=== PATIENT | female | born 1970 | race Caucasian/White ===

== ENCOUNTER 2016-12-27 07:28 | Emergency (ER) | payer OTHER ==
[~2016-12-27] VITALS: Ht 154.9 cm; Wt 99.8 kg
[~2016-12-27 07:28] MED LIST: ALLERGY RELIEF25 MG PO; BENADRYL12.5 MG/5 PO; FLONASE ALLERG9.9 ML NAS; IBU800 MG PO; LEVOFLOXACIN500 MG PO; OMNICEF300 MG PO; PERCOCET 325 MG1 TA2 PO; PHENERGAN W/ DE30 ML PO; PREDNICOT10 MG PO; PREDNICOT20 MG PO; PROAIR HFA0.09 MG/AC INH; TESSALON PERLE200 MG PO; VIBRAMYCIN100 MG PO; VITAMIN C; ZITHROMAX Z PA250 MG PO; ZITHROMAX250 MG PO
[2016-12-27] MEDS ORDERED: ELMIRON100 MG PO (07:39)
[2016-12-27] MEDS ORDERED: PYRIDIUM100 MG PO (07:41)
[2016-12-27] MEDS ORDERED: OSTEO BI-FLEX1 EAC1 PO (07:41)
[2016-12-29 08:07] LABS: HIV 1+2 AB + HIV1 P24 AG Non Reactive (Non Reactive)
== END 2016-12-27 08:38 | disposition home or self-care (01) ==
LOC: ED 07:28
PROVIDERS: Emergency Medicine
DX: S61.233A Puncture wound without foreign body of left middle finger without damage to nail, initial encounter (principal); W27.3XXA Contact with needle (sewing), initial encounter; Z88.0 Allergy status to penicillin; Z88.1 Allergy status to other antibiotic agents; F17.200 Nicotine dependence, unspecified, uncomplicated; Z79.899 Other long term (current) drug therapy; X58.XXXA Exposure to other specified factors, initial encounter; Y93.89 Activity, other specified; Y92.9 Unspecified place or not applicable; Y99.9 Unspecified external cause status

== ENCOUNTER → 2017-02-09 | Outpatient (CLI) | payer SELFPAY ==
[~2017-02-09] MED LIST changes: +ELMIRON100 MG PO; +OSTEO BI-FLEX1 EAC1 PO; +PYRIDIUM100 MG PO
== END | disposition home or self-care (01) ==
LOC: RESCLI 03:33
DX: E66.09 Other obesity due to excess calories (principal); Z72.0 Tobacco use; Z71.6 Tobacco abuse counseling; Z91.09 Other allergy status, other than to drugs and biological substances; Z88.1 Allergy status to other antibiotic agents; W27.3XXA Contact with needle (sewing), initial encounter

== ENCOUNTER → 2017-02-19 | Outpatient (CLI) | payer OTHER ==
[2017-02-19 14:01] LABS: ALBUMIN 3.4 gm/dl (3.1-4.5); ALKALINE PHOSPHATASE 70 U/L (45-117); BILIRUBIN, DIRECT < 0.1 mg/dL (0.0-0.2); BILIRUBIN, TOTAL 0.2 mg/dl (0.2-1.0); BUN 9 mg/dl (7-24); CARBON DIOXIDE 27 mmol/L (21-32); CHLORIDE 105 mmol/L (98-107); EST GLOM FILT AFRICAN AMERICAN > 60 ml/min; GLUCOSE 95 mg/dL (65-99); POTASSIUM 4.1 mmol/L (3.5-5.1); SGOT/AST 16 IU/L (3-35); SGPT/ALT 21 U/L (12-78); SODIUM 139 mmol/L (136-145); TOTAL PROTEIN 7.2 gm/dL (6.4-8.2)
[2017-02-20 07:07] LABS: HIV 1+2 AB + HIV1 P24 AG Non Reactive (Non Reactive)
== END | disposition home or self-care (01) ==
LOC: LAB 12:43
PROVIDERS: Internal Medicine
DX: Z77.21 Contact with and (suspected) exposure to potentially hazardous body fluids (principal); W27.3XXA Contact with needle (sewing), initial encounter

== ENCOUNTER 2017-07-20 07:18 | Emergency (ER) | payer SELFPAY ==
[~2017-07-20] VITALS: Wt 104.3 kg
[2017-07-20] MEDS ORDERED: LEVOFLOXACIN500 MG PO (08:48)
== END 2017-07-20 09:05 | disposition home or self-care (01) ==
LOC: ED 07:18
DX: J40 Bronchitis, not specified as acute or chronic (principal); J32.9 Chronic sinusitis, unspecified; F17.200 Nicotine dependence, unspecified, uncomplicated; F10.10 Alcohol abuse, uncomplicated; Z88.0 Allergy status to penicillin; Z88.1 Allergy status to other antibiotic agents; Z88.8 Allergy status to other drugs, medicaments and biological substances; Z79.899 Other long term (current) drug therapy

== ENCOUNTER → 2017-07-21 | Outpatient (CLI) | payer OTHER ==
[2017-07-21 12:15] LABS: ALBUMIN 3.5 gm/dl (3.1-4.5); BILIRUBIN, DIRECT < 0.1 mg/dL (0.0-0.2); BUN 9 mg/dl (7-24); CHLORIDE 105 mmol/L (98-107); CREATININE 0.79 mg/dL (0.55-1.02); POTASSIUM 4.4 mmol/L (3.5-5.1); SGOT/AST 17 IU/L (3-35); SGPT/ALT 24 U/L (12-78); SODIUM 138 mmol/L (136-145); TOTAL PROTEIN 7.5 gm/dL (6.4-8.2)
[2017-07-21 12:16] LABS: ALKALINE PHOSPHATASE 80 U/L (45-117)
[2017-07-22 08:08] LABS: HIV 1+2 AB + HIV1 P24 AG Non Reactive (Non Reactive)
== END | disposition home or self-care (01) ==
LOC: RESCLI 02:12
PROVIDERS: Internal Medicine
DX: Z02.6 Encounter for examination for insurance purposes (principal); J06.9 Acute upper respiratory infection, unspecified; B97.89 Other viral agents as the cause of diseases classified elsewhere; Z87.891 Personal history of nicotine dependence; R53.82 Chronic fatigue, unspecified

== ENCOUNTER → 2017-08-04 | Outpatient (CLI) | payer SELFPAY ==
[~2017-08-04] MED LIST changes: +PREDNISONE20 M1 PO; +PROAIR HFA8.5 GM INH; +PROVENTIL HFA6.7 GM INH
== END | disposition home or self-care (01) ==
LOC: MAMMO 12:47
DX: Z12.31 Encounter for screening mammogram for malignant neoplasm of breast (principal)

== ENCOUNTER 2017-08-06 07:20 | Emergency (ER) | payer SELFPAY ==
[~2017-08-06] VITALS: Ht 154.9 cm; Wt 108.9 kg
[~2017-08-06 07:20] MED LIST changes: -PREDNISONE20 M1 PO; -PROAIR HFA8.5 GM INH; -PROVENTIL HFA6.7 GM INH
[2017-08-06] MEDS ORDERED: PROAIR HFA8.5 GM INH (07:34)
[2017-08-06 08:21] LABS: BASO % 0.3 % (0.0-1.0); EOS # 0.4 10*3/uL (0.0-0.4); EOS % 4.9 % (1.0-4.0); HEMATOCRIT 36.3 % (37.0-47.0); HEMOGLOBIN 12.1 g/dl (12.0-16.0); LYMPH # 2.4 10*3/uL (1.3-4.4); LYMPH % 31.1 % (27.0-41.0); MEAN CELL VOLUME 91.9 fl (81.0-99.0); MEAN CORPUSCULAR HGB 30.6 pg (27.0-31.0); MEAN CORPUSCULAR HGB CONC 33.3 g/dl (33.0-37.0); MEAN PLATELET VOLUME 10.2 fl (9.6-12.3); MONO # 0.5 10*3/uL (0.1-1.0); MONO % 6.7 % (3.0-9.0); NEUT # 4.4 10*3/uL (2.3-7.9); NEUT % 56.7 % (47.0-73.0); PLATELET COUNT AUTOMATED 287 10*3/uL (130-400); RED BLOOD COUNT 3.95 10*6/uL (4.10-5.10); RED CELL DISTRI WIDTH 12.3 % (0-14.5); WHITE BLOOD COUNT 7.8 10*3/uL (4.8-10.8)
[2017-08-06 08:36] LABS: ALBUMIN 3.6 gm/dl (3.1-4.5); ALKALINE PHOSPHATASE 70 U/L (45-117); BUN 13 mg/dl (7-24); CHLORIDE 106 mmol/L (98-107); SGOT/AST 11 IU/L (3-35); SGPT/ALT 22 U/L (12-78); SODIUM 140 mmol/L (136-145); TOTAL PROTEIN 7.6 gm/dL (6.4-8.2)
[2017-08-06] MEDS ORDERED: PREDNISONE20 M1 PO (09:31)
[2017-08-06] MEDS ORDERED: VIBRAMYCIN100 MG PO (09:31)
[2017-08-06] MEDS ORDERED: PROVENTIL HFA6.7 GM INH (09:33)
== END 2017-08-06 09:51 | disposition home or self-care (01) ==
LOC: ED 07:20
PROVIDERS: Emergency Medicine
DX: J44.1 Chronic obstructive pulmonary disease with (acute) exacerbation (principal); F17.200 Nicotine dependence, unspecified, uncomplicated; Z88.0 Allergy status to penicillin; Z88.1 Allergy status to other antibiotic agents

== ENCOUNTER 2017-08-13 00:42 | Emergency (ER) | payer SELFPAY ==
[~2017-08-13] VITALS: Ht 162.5 cm; Wt 108.9 kg
[~2017-08-13 00:42] MED LIST changes: +PREDNISONE20 M1 PO; +PROAIR HFA8.5 GM INH; +PROVENTIL HFA6.7 GM INH
[2017-08-13 01:12] LABS: BASO % 0.2 % (0.0-1.0); EOS # 0.3 10*3/uL (0.0-0.4); EOS % 2.6 % (1.0-4.0); HEMATOCRIT 37.5 % (37.0-47.0); HEMOGLOBIN 12.8 g/dl (12.0-16.0); LYMPH % 35.4 % (27.0-41.0); MEAN CELL VOLUME 91.2 fl (81.0-99.0); MEAN CORPUSCULAR HGB 31.1 pg (27.0-31.0); MEAN CORPUSCULAR HGB CONC 34.1 g/dl (33.0-37.0); MONO # 0.7 10*3/uL (0.1-1.0); MONO % 6.1 % (3.0-9.0); NEUT # 6.3 10*3/uL (2.3-7.9); NEUT % 55.5 % (47.0-73.0); PLATELET COUNT AUTOMATED 329 10*3/uL (130-400); RED BLOOD COUNT 4.11 10*6/uL (4.10-5.10); RED CELL DISTRI WIDTH 12.6 % (0-14.5); WHITE BLOOD COUNT 11.4 10*3/uL (4.8-10.8)
[2017-08-13 01:21] LABS: ACT PARTIAL THROMBO TIME 24.3 SECONDS (20.8-31.5); INTERNATIONAL NORM RATIO 0.9 (2.0-3.5)
[2017-08-13 01:51] LABS: ALBUMIN 3.5 gm/dl (3.1-4.5); ALKALINE PHOSPHATASE 63 U/L (45-117); BUN 24 mg/dl (7-24); CHLORIDE 103 mmol/L (98-107); CREATININE 0.79 mg/dL (0.55-1.02); SGOT/AST 9 IU/L (3-35); SGPT/ALT 20 U/L (12-78); SODIUM 139 mmol/L (136-145); TOTAL PROTEIN 7.3 gm/dL (6.4-8.2)
[2017-08-13 01:53] LABS: TROPONIN I < 0.015 ng/ml (<0.045)
== END 2017-08-13 03:39 | disposition home or self-care (01) ==
LOC: ED 00:42
PROVIDERS: Student in an Organized Health Care Education/Training Program
DX: R07.89 Other chest pain (principal); J44.1 Chronic obstructive pulmonary disease with (acute) exacerbation; F10.10 Alcohol abuse, uncomplicated; Z88.0 Allergy status to penicillin; Z88.1 Allergy status to other antibiotic agents; Z88.8 Allergy status to other drugs, medicaments and biological substances; Z79.899 Other long term (current) drug therapy

== ENCOUNTER → 2017-08-17 | Outpatient (CLI) | payer SELFPAY ==
[~2017-08-17] MED LIST changes: +CYCLOBENZAPRINE10 MG PO; +NAPROSYN500 MG PO; +PREDNISONE10 MG PO; +VITAMIN D31000 UNI1 PO
== END | disposition home or self-care (01) ==
LOC: RESCLI 02:12
DX: R42 Dizziness and giddiness (principal); M79.89 Other specified soft tissue disorders; E66.01 Morbid (severe) obesity due to excess calories; Z68.42 Body mass index [BMI] 45.0-49.9, adult; Z87.891 Personal history of nicotine dependence; Z88.1 Allergy status to other antibiotic agents

== ENCOUNTER 2017-08-19 10:44 | Emergency (ER) | payer SELFPAY ==
[~2017-08-19] VITALS: Ht 154.9 cm; Wt 111.1 kg
[~2017-08-19 10:44] MED LIST changes: -CYCLOBENZAPRINE10 MG PO; -NAPROSYN500 MG PO; -PREDNISONE10 MG PO; -VITAMIN D31000 UNI1 PO
[2017-08-19 11:35] LABS: BASO % 0.2 % (0.0-1.0); EOS # 0.1 10*3/uL (0.0-0.4); EOS % 0.8 % (1.0-4.0); HEMATOCRIT 37.6 % (37.0-47.0); HEMOGLOBIN 12.5 g/dl (12.0-16.0); LYMPH # 1.1 10*3/uL (1.3-4.4); LYMPH % 8.7 % (27.0-41.0); MEAN CELL VOLUME 92.8 fl (81.0-99.0); MEAN CORPUSCULAR HGB 30.9 pg (27.0-31.0); MEAN CORPUSCULAR HGB CONC 33.2 g/dl (33.0-37.0); MEAN PLATELET VOLUME 9.7 fl (9.6-12.3); MONO # 0.3 10*3/uL (0.1-1.0); MONO % 2.2 % (3.0-9.0); NEUT # 11.1 10*3/uL (2.3-7.9); NEUT % 87.7 % (47.0-73.0); PLATELET COUNT AUTOMATED 346 10*3/uL (130-400); RED BLOOD COUNT 4.05 10*6/uL (4.10-5.10); RED CELL DISTRI WIDTH 12.5 % (0-14.5); WHITE BLOOD COUNT 12.7 10*3/uL (4.8-10.8)
[2017-08-19 11:53] LABS: ALBUMIN 3.4 gm/dl (3.1-4.5); ALKALINE PHOSPHATASE 60 U/L (45-117); BUN 15 mg/dl (7-24); CHLORIDE 106 mmol/L (98-107); CREATININE 0.81 mg/dL (0.55-1.02); POTASSIUM 4.4 mmol/L (3.5-5.1); SGOT/AST 12 IU/L (3-35); SGPT/ALT 19 U/L (12-78); SODIUM 138 mmol/L (136-145); TOTAL PROTEIN 7.1 gm/dL (6.4-8.2)
[2017-08-19 11:54] LABS: TROPONIN I < 0.015 ng/ml (<0.045)
[2017-08-19 12:04] LABS: BILIRUBIN NEGATIVE (NEGATIVE); BLOOD NEGATIVE (NEGATIVE); CLARITY CLOUDY (CLEAR); COLOR YELLOW (YELLOW); GLUCOSE NEGATIVE (NEGATIVE); KETONE NEGATIVE (NEGATIVE); LEUKO ESTERASE NEGATIVE (NEGATIVE); NITRITE NEGATIVE (NEGATIVE); PH 5.5 (5.0-9.0); SPECIFIC GRAVITY 1.025 (1.005-1.030); UROBILINOGEN 0.2 E.U./dl (0.2-1.0)
[2017-08-19 12:34] LABS: BACTERIA 2+; EPITHELIAL CELLS 15-20; MUCOUS 1+
[2017-08-19] MEDS ORDERED: CYCLOBENZAPRINE10 MG PO ×2 (13:12→13:19)
[2017-08-19] MEDS ORDERED: NAPROSYN500 MG PO (13:12)
== END 2017-08-19 13:29 | disposition home or self-care (01) ==
LOC: ED 10:44
PROVIDERS: Physician Assistant
DX: S39.012A Strain of muscle, fascia and tendon of lower back, initial encounter (principal); R07.81 Pleurodynia; M25.512 Pain in left shoulder; Z98.51 Tubal ligation status; Z98.890 Other specified postprocedural states; Z79.899 Other long term (current) drug therapy; Z88.0 Allergy status to penicillin; Z88.1 Allergy status to other antibiotic agents; X58.XXXA Exposure to other specified factors, initial encounter; Y93.89 Activity, other specified; Y92.89 Other specified places as the place of occurrence of the external cause; Y99.9 Unspecified external cause status

== ENCOUNTER → 2017-08-21 | Outpatient (CLI) | payer SELFPAY ==
[~2017-08-21] MED LIST changes: +CYCLOBENZAPRINE10 MG PO; +NAPROSYN500 MG PO
== END | disposition home or self-care (01) ==
LOC: US 01:01
DX: M79.89 Other specified soft tissue disorders (principal); R60.0 Localized edema

== ENCOUNTER 2017-08-31 09:10 | Inpatient (IN) | payer SELFPAY ==
[2017-08-31] VITALS (7 sets, daily range): BP systolic 123–160; BP diastolic 73–91
[~2017-08-31] VITALS: Ht 156.2 cm; Wt 107.6 kg
--- NOTE | ~2017-08-31 | PROC NOTE ---
[place], [place] PROCEDURE NOTE NAME: MAYRA BRITO UNIT #: [id number] ROOM: [facility] DOCTOR: RADHA HOWE MD,REGI BIRTHDATE: [birth year] DOS: 09/02/2017 PREOPERATIVE DIAGNOSIS: The patient with cough and wheezing ongoing for the past several months with current interstitial lung disease. POSTOPERATIVE DIAGNOSES: The patient has evidence of mucus impaction major airway and acute tracheobronchitis. COMPLICATIONS: None. BLOOD LOSS: None. PROCEDURE DESCRIPTION: Informed consent obtained for the patient. She was brought to the OR and placed in supine position. Conscious sedation was administered by the anesthesia department. After that, the airway introduced into the mouth. Bronchoscope advanced to the airway into laryngeal area. Epiglottis and vocal cords were seen. Bronchoscope was advanced to vocal cord and tracheal lumen. The tracheal lumen was seen. Moderate amount of thick mucus secretion present in the tracheal lumen. The patient was suctioned out. Right upper, right middle, right lower, left upper, lingular lower lobe bronchi were all examined. All secretions suctioned out with help of normal saline wash and sent for culture. No obstructive lesions noted. Procedure well tolerated by the patient without any difficulty. Postoperative findings will be discussed with the patient once the patient recovers the effects of acute sedation. REGI GARCIA MD CM:PROCNOTE:PROCEDURE NOTE [id number] REGI HOWE MD
--- NOTE | ~2017-08-31 | PR ---
[place], [place] PROGRESS NOTE NAME: MAYRA BRITO [facility] #: [id number] UNIT #: [id number] ROOM: 515 DOCTOR: RADHA HOWE MD,REGI BIRTHDATE: [birth year] DOS: 09/02/2017 PULMONARY PROGRESS NOTE SUBJECTIVE: She was noted similar symptoms previously with pain described in different parts of the body including the chest with cough. Cough remains nonproductive. Denies symptoms of hemoptysis. The patient is still complaining of symptoms of shortness of breath. She had a CT of the chest that was completed yesterday that was personally assessed as well. The patient denies any symptoms of headache. Denies any edema of the lower extremity or abnormal skin rashes. Remaining systems were reviewed, they were noted all negative. She is currently noted n.p.o. past midnight for bronchoscopy. OBJECTIVE: VITAL SIGNS: The patient showed normal temperature, respiratory rate 17, heart rate 79 to 101, blood pressure 148/96 to 128/68. Pulse oxygen saturation on room air 95% saturation to 93% saturation. HEENT: Chronic obesity. Head was atraumatic. Eyes nonicterus. NECK: Supple. CARDIOVASCULAR: S1, S2 audible. LUNGS: Noted general reduction in breath sounds bilaterally. Scattered crackles and wheezing. ABDOMEN: Soft and obese. EXTREMITIES: The patient noted without any edema. MUSCULOSKELETAL: Without any acute deformity. Skin was noted without any lesions or rashes. MUSCULOSKELETAL: Without any acute deformities. LABORATORY DATA: CT scan of the chest for the patient that was done yesterday does not show evidence of pulmonary embolism. Patchy ground glass opacity was present in the lungs bilaterally. There was no pleural fluid or any abnormal lymphadenopathy or any abnormal lesion seen. CBC for the patient today: WBC count 15.5, hemoglobin 11.5, hematocrit 34.9, platelet count was noted as normal. CMP of the patient on 09/02/2017: Glucose 125, BUN and creatinine were normal. Remaining CMP was completely normal. Blood culture from 08/31/2017 shows no bacterial growths. IMPRESSION: 1. The patient has been currently noted with ongoing musculoskeletal chest pain and symptoms of coughing going for a while. 2. History of chronic nicotine dependence. 3. Ground glass opacity, possible suggestion of interstitial lung disease related to the tobacco use for the patient and respiratory bronchiolitis would be considered in the differential diagnosis. 4. The patient with chronic obesity as well. 5. Steroid-induced hyperglycemia as well. PLAN OF MANAGEMENT: Proceed with bronchoscopy as planned for this patient. Await the results of the bronchoscopy prior to making any changes in the medical management. All other supportive therapy, plan of management and care to be [place], [place] PROGRESS NOTE NAME: MAYRA BRITO UNIT #: [id number] ROOM: [facility] DOCTOR: RADHA HOWE MD,REGI BIRTHDATE: [birth year] continued. Continuation of the bronchodilators, medical management of hyperglycemia. Supportive care. The Solu-Medrol dose for the patient would be decreased gradually based on improvement in the respiratory status. REGI GARCIA MD CM:PNTRANS [id number] REGI HOWE MD 09/03/17 0017 interface
--- NOTE | ~2017-08-31 | CON ---
[place], [place] REPORT OF CONSULTATION [id number] UNIT #: [id number] ROOM: 515 DOCTOR: RADHA HOWE MDREGI BIRTHDATE: [birth year] DOS: 09/01/2017 PULMONARY CONSULTATION, EVALUATION, AND MANAGEMENT CONSULTATION REQUESTED BY: Hospitalist service. REASON FOR CONSULTATION: For symptom persistent with shortness breath, nonresolving and other. HISTORY OF PRESENT ILLNESS: This is a 47-year-old white female stating that she has been sick over 2 months. She has been noted with symptoms of shortness of breath, which has been noted with excessive chest congestion intermittently. She denies symptoms of chest pain. The patient stated shortness of breath has been noted progressive, gradually worsening, and not resolving. The pain was also described to be associated with symptoms of pain and aches, which are described in different parts of the body. The patient denies symptoms of hemoptysis with that. The wheezing was noted. The cough remains [id number] at times, nonproductive and episodic. REVIEW OF SYSTEMS: CONSTITUTIONAL SYMPTOMS: She was noted with symptoms of fatigue and tiredness, but no fever or chills. EYES: Denies any burning, redness, or tenderness. EARS, NOSE, THROAT SYMPTOMS: No sore throat, hoarseness, otalgia, postnasal drainage, or epistaxis. CARDIOVASCULAR: Denies angina pain, edema, or pain of the lower extremity. GASTROINTESTINAL: No dysphagia, nausea, vomiting, diarrhea, abdominal pain, hematemesis, melena, hematochezia, or abnormal weight loss history. GENITOURINARY: No dysuria, suprapubic pain, or hematuria. MUSCULOSKELETAL: Pain and aches were described in different parts of the body, neck, in the the chest area, and others. SKIN: Denies any lesions or rashes. CENTRAL NERVOUS SYSTEM: No dizziness, headache, diplopia, or syncopal episodes. Remaining systems were reviewed for the patient, they were noted all negative. PAST MEDICAL HISTORY: The patient was noted with history of: 1. Hyperlipidemia. 2. Essential hypertension. 3. Past history of left maxillary sinusitis. 4. Seasonal allergic rhinitis. PAST SURGICAL HISTORY: Noted: 1. Facial surgery. 2. Hemorrhoidectomy. 3. History of spontaneous . 4. History of chronic obesity. SOCIAL HISTORY: The patient stated that she is currently . She denies any history of alcohol or any illicit drug use. Tobacco use reported for the patient up to 2 packs of cigarettes per day at times, which has been [place], [place] REPORT OF CONSULTATION NAME: MAYRA BRITO UNIT #: [id number] ROOM: [facility] DOCTOR: RADHA HOWE MD,REGI BIRTHDATE: [birth year] discontinued approximately 4 years ago. FAMILY HISTORY: The patient's father from complication related to the brain tumor. Mother living with history of coronary artery disease, diabetes, and hypertension. HOME MEDICATIONS: Noted 1. Use of ProAir HFA inhaler. 2. Naproxen. DRUG ALLERGY HISTORY: REPORTED ALLERGIES TO THE ERYTHROMYCIN, CLINDAMYCIN, AND PENICILLINS. PHYSICAL EXAMINATION: GENERAL: This is a 47-year-old female patient currently noted to be awake and alert at this time with some distress because of the pain, which is noted nonspecified in different parts of the body. Height of 5 feet 1.5 inches, weight of 233.7 pounds, and BMI 44. VITAL SIGNS: Vital signs for the patient, the temperature remains normal since admission, respiratory rate was 24-18, heart rate of 103-67, and blood pressure 153/107-114/62. Pulse oxygen saturation on room air was 97%-98% saturation. HEENT: Examination shows head was atraumatic. Eyes nonicterus. NECK: Supple. It was obese. Decreased posterior pharyngeal space. CARDIOVASCULAR: S1, S2 is audible. LUNGS:. The patient was noted with general reduction in breath sounds, scattered expiratory wheezing without any crackles. ABDOMEN: Soft, obese, and nontender with bowel sounds present. EXTREMITIES: The patient was noted no edema, clubbing, or cyanosis. VISIBLE SKIN: No lesions or rashes. MUSCULOSKELETAL: Without any acute deformities. CENTRAL NERVOUS SYSTEM: Cranial nerves 2-12 intact. No focal neurologic deficit. LABORATORY DATA: Lactic acid of the patient on 08/31/2017 was noted as normal. CBC of the patient on 08/31/2017 was noted essentially normal as well. PT and PTT on 08/31/2017 was normal. The CMP of the patient on 08/31/2017 on admission, glucose 120. Remaining CMP normal. CBC of the patient of 09/01/2017, WBC count 11.8, hemoglobin 10.9, hematocrit 32.8, and platelet count was normal. The CMP of patient that was done on 09/01/2017, glucose 216, BUN and creatinine was normal. Phosphorus 1.9. One-view chest x-ray of the patient that was done on admission was personally reviewed, some haziness noted in the right heart border with mild hyperinflation without any acute pulmonary infiltration. IMPRESSION: 1. The patient has been currently admitted to the hospital for ongoing illness for the past 4 months may be related to the ongoing acute exacerbation of chronic obstructive pulmonary disease, suspected mucous impaction major airways very likely. 2. History of chronic heavy nicotine abuse with tobacco cessation just [place], [place] REPORT OF CONSULTATION NAME: MAYRA BRITO UNIT #: [id number] ROOM: [facility] DOCTOR: REGI BRUCE MD BIRTHDATE: [birth year] recently. There was no formal diagnosis of chronic obstructive pulmonary disease and bronchial asthma has been known. She does have an appointment in my office for outpatient assessment in the coming few weeks. 3. Hyperglycemia-induced by the corticosteroids as well to rule out diabetes mellitus. 4. Suspected obstructive sleep apnea disorder with current body habitus. PLAN OF MANAGEMENT: Because of chronicity of the symptoms for this patient, I will be ordering CT scan of the chest that will be done for this patient with intravenous contrast and high resolution images to exclude any chronic parenchymal disease because of longstanding symptoms of respiratory tract. The bronchoscopy was assessed to be done tomorrow morning for this patient as well. Based on the CT scan of the chest if necessary, we will be doing the BAL specimen as well. Continue current dose of corticosteroids. Aggressive monitoring for the patient for the hyperglycemia should be done with the sliding scale insulin coverage as well by the primary care attending. Rule out diabetes mellitus with further additional testing for the patient as well. The patient has been already also suspected obstructive sleep apnea disorder and require outpatient sleep assessment for the patient as well. The risk and the benefits of bronchoscopy has been discussed with the patient, she is agreeable. She was made n.p.o. past midnight for bronchoscopy. Other supportive therapy and plan of management as in progress. The pain and aches of the patient described in the body may be related to infection or other etiology. Rheumatologic disease cannot be excluded. If there would be pulmonary infiltration noted, certainly workup for the rheumatologic and connective tissue disorder would be ordered accordingly. Thanks for allowing me to participate in care of this patient. REGI GARCIA MD CM:CONSTR:REPORT OF CONSULTATION 1246 09/02/17 0250 interface
--- NOTE | ~2017-08-31 | PR ---
[place], [place] PROGRESS NOTE NAME: MAYRA BRITO UNIT #: [id number] ROOM: 515 DOCTOR: REGI BRUCE MD BIRTHDATE: [birth year] DOS: 09/03/2017 SUBJECTIVE: She has reported significant reduction and improvement of respiratory symptom. The patient after therapy and bronchoscopy completed yesterday. Reduction of cough, wheezing and shortness breath was reported. Denies symptoms of hemoptysis or chest pain. The patient still occurs with cough, but the reduction of the intensity of the pain was reported. OBJECTIVE: VITAL SIGNS: Show normal temperature, respirations 16, heart rate 98, blood pressure 130/90, pulse oxygen saturation on room air 95% saturation. HEAD, EARS, EYES, NOSE AND THROAT: Chronic obesity. NECK: Supple. CARDIOVASCULAR: S1, S2 audible. LUNGS: Without any wheezing or crackles at this time. ABDOMEN: Soft, nontender, bowel sounds present. EXTREMITIES: Without any acute edema. Chronic obesity. LABORATORY DATA: Culture of the bronchial washing. It shows as normal kayli. The Gram stain for bronchial washings yesterday, many white blood cells, many gram-positive cocci in pairs, chains and clusters, few gram-negative bacilli. CBC, mild anemia, otherwise normal BMP, normal BUN and creatinine. IMPRESSION: 1. Progressive reduction and improvement in the respiratory symptom. The patient has been noted after the current bronchoscopy. 2. Chronic severe obesity as well. 3. Resolving acute bronchial asthma as well. 4. Musculoskeletal chest pain. 5. Interstitial lung disease was also noted previous. 6. Steroid-induced hyperglycemia. PLAN OF TREATMENT: Consider possible discharge the patient home on oral medication. The patient tapering dose of prednisone. Use of bronchodilators and empirical antibiotic such as doxycycline 100 mg p.o. b.i.d. could be considered. Outpatient assessment suggested post-discharge. [place], [place] PROGRESS NOTE NAME: MAYRA BRITO UNIT #: [id number] ROOM: [facility] DOCTOR: REGI BRUCE MD BIRTHDATE: [birth year] REGI GARCIA MD CM:PNTRANS [id number] REGI HOWE MD 09/03/17 7532 interface
[2017-08-31 09:46] LABS: BASO # 0.1 10*3/uL (0.0-0.1); BASO % 0.5 % (0.0-1.0); EOS # 0.8 10*3/uL (0.0-0.4); EOS % 8.1 % (1.0-4.0); HEMATOCRIT 37.7 % (37.0-47.0); HEMOGLOBIN 12.6 g/dl (12.0-16.0); LYMPH # 1.7 10*3/uL (1.3-4.4); LYMPH % 16.6 % (27.0-41.0); MEAN CELL VOLUME 92.6 fl (81.0-99.0); MEAN CORPUSCULAR HGB CONC 33.4 g/dl (33.0-37.0); MEAN PLATELET VOLUME 10.7 fl (9.6-12.3); MONO # 0.5 10*3/uL (0.1-1.0); MONO % 5.3 % (3.0-9.0); NEUT # 6.9 10*3/uL (2.3-7.9); NEUT % 69.1 % (47.0-73.0); PLATELET COUNT AUTOMATED 319 10*3/uL (130-400); RED BLOOD COUNT 4.07 10*6/uL (4.10-5.10); RED CELL DISTRI WIDTH 12.7 % (0-14.5); WHITE BLOOD COUNT 9.9 10*3/uL (4.8-10.8)
[2017-08-31 10:10] LABS: BILIRUBIN NEGATIVE (NEGATIVE); BLOOD NEGATIVE (NEGATIVE); CLARITY CLEAR (CLEAR); COLOR YELLOW (YELLOW); GLUCOSE NEGATIVE (NEGATIVE); KETONE NEGATIVE (NEGATIVE); LEUKO ESTERASE NEGATIVE (NEGATIVE); NITRITE NEGATIVE (NEGATIVE); UROBILINOGEN 0.2 E.U./dl (0.2-1.0)
[2017-08-31 10:16] LABS: ACT PARTIAL THROMBO TIME 26.1 SECONDS (20.8-31.5); INTERNATIONAL NORM RATIO 0.9 (2.0-3.5)
[2017-08-31 10:16] LABS: WBC 0-2 wbc/hpf (0-5)
[2017-08-31 10:23] LABS: ALBUMIN 3.6 gm/dl (3.1-4.5); ALKALINE PHOSPHATASE 66 U/L (45-117); BUN 9 mg/dl (7-24); CHLORIDE 108 mmol/L (98-107); CREATININE 0.89 mg/dL (0.55-1.02); POTASSIUM 4.1 mmol/L (3.5-5.1); SGOT/AST 23 IU/L (3-35); SGPT/ALT 27 U/L (12-78); SODIUM 141 mmol/L (136-145); TOTAL PROTEIN 7.4 gm/dL (6.4-8.2)
[2017-08-31 10:24] LABS: TROPONIN I < 0.015 ng/ml (<0.045)
[2017-09-01] VITALS: BP 114/62
[2017-09-01 06:33] LABS: BASO % 0.1 % (0.0-1.0); HEMATOCRIT 32.8 % (37.0-47.0); HEMOGLOBIN 10.9 g/dl (12.0-16.0); LYMPH # 0.9 10*3/uL (1.3-4.4); LYMPH % 7.4 % (27.0-41.0); MEAN CELL VOLUME 92.7 fl (81.0-99.0); MEAN CORPUSCULAR HGB 30.8 pg (27.0-31.0); MEAN CORPUSCULAR HGB CONC 33.2 g/dl (33.0-37.0); MEAN PLATELET VOLUME 10.1 fl (9.6-12.3); MONO # 0.3 10*3/uL (0.1-1.0); MONO % 2.5 % (3.0-9.0); NEUT # 10.6 10*3/uL (2.3-7.9); NEUT % 89.6 % (47.0-73.0); PLATELET COUNT AUTOMATED 269 10*3/uL (130-400); RED BLOOD COUNT 3.54 10*6/uL (4.10-5.10); RED CELL DISTRI WIDTH 12.8 % (0-14.5); WHITE BLOOD COUNT 11.8 10*3/uL (4.8-10.8)
[2017-09-01 07:08] LABS: ALBUMIN 3.2 gm/dl (3.1-4.5); ALKALINE PHOSPHATASE 59 U/L (45-117); BUN 8 mg/dl (7-24); CHLORIDE 113 mmol/L (98-107); CHOLESTEROL 191 mg/dL (<200); CREATININE 0.94 mg/dL (0.55-1.02); FREE T4 0.74 ng/dl (0.76-1.46); HDL CHOLESTEROL 62 mg/dl (40-60); LDL CHOLESTEROL 120 mg/dL (9-159); PHOSPHOROUS 1.9 mg/dL (2.5-4.9); SGOT/AST 14 IU/L (3-35); SGPT/ALT 23 U/L (12-78); SODIUM 143 mmol/L (136-145); TOTAL PROTEIN 6.7 gm/dL (6.4-8.2); TRIGLYCERIDES 43 mg/dl (<150); VLDL CHOLESTEROL 9 mg/dL (6-40)
[2017-09-01 07:50] VITALS: BP 160/88
[2017-09-01 08:27] LABS: VITAMIN D, 25-HYDROXY 21.7 ng/mL (30-100)
[2017-09-01 16:46] VITALS: BP 119/83
[2017-09-01 20:25] VITALS: BP 132/94
[2017-09-02] VITALS (9 sets, daily range): BP systolic 113–148; BP diastolic 54–96
[2017-09-02 07:23] LABS: BASO % 0.1 % (0.0-1.0); HEMATOCRIT 34.9 % (37.0-47.0); HEMOGLOBIN 11.5 g/dl (12.0-16.0); LYMPH % 6.4 % (27.0-41.0); MEAN CELL VOLUME 94.1 fl (81.0-99.0); MEAN PLATELET VOLUME 10.1 fl (9.6-12.3); MONO # 0.5 10*3/uL (0.1-1.0); MONO % 3.2 % (3.0-9.0); NEUT # 13.9 10*3/uL (2.3-7.9); NEUT % 89.8 % (47.0-73.0); PLATELET COUNT AUTOMATED 311 10*3/uL (130-400); RED BLOOD COUNT 3.71 10*6/uL (4.10-5.10); RED CELL DISTRI WIDTH 13.3 % (0-14.5); WHITE BLOOD COUNT 15.5 10*3/uL (4.8-10.8)
[2017-09-02 07:53] LABS: CHLORIDE 110 mmol/L (98-107); POTASSIUM 4.4 mmol/L (3.5-5.1); SODIUM 142 mmol/L (136-145)
[2017-09-02 08:01] LABS: ALBUMIN 3.5 gm/dl (3.1-4.5); ALKALINE PHOSPHATASE 59 U/L (45-117); BUN 15 mg/dl (7-24); CREATININE 0.92 mg/dL (0.55-1.02); SGOT/AST 16 IU/L (3-35); SGPT/ALT 23 U/L (12-78); TOTAL PROTEIN 7.2 gm/dL (6.4-8.2)
[2017-09-03] VITALS: BP 119/64
[2017-09-03 06:46] VITALS: BP 130/90
[2017-09-03 07:11] LABS: BASO % 0.1 % (0.0-1.0); EOS % 0.1 % (1.0-4.0); HEMATOCRIT 34.5 % (37.0-47.0); HEMOGLOBIN 11.4 g/dl (12.0-16.0); LYMPH # 1.1 10*3/uL (1.3-4.4); MEAN CELL VOLUME 94.5 fl (81.0-99.0); MEAN CORPUSCULAR HGB 31.2 pg (27.0-31.0); MEAN PLATELET VOLUME 10.2 fl (9.6-12.3); MONO # 0.3 10*3/uL (0.1-1.0); MONO % 2.8 % (3.0-9.0); NEUT # 9.1 10*3/uL (2.3-7.9); NEUT % 86.4 % (47.0-73.0); PLATELET COUNT AUTOMATED 287 10*3/uL (130-400); RED BLOOD COUNT 3.65 10*6/uL (4.10-5.10); RED CELL DISTRI WIDTH 13.1 % (0-14.5); WHITE BLOOD COUNT 10.6 10*3/uL (4.8-10.8)
[2017-09-03 07:47] LABS: ALBUMIN 3.3 gm/dl (3.1-4.5); ALKALINE PHOSPHATASE 54 U/L (45-117); BUN 15 mg/dl (7-24); CHLORIDE 106 mmol/L (98-107); CREATININE 0.85 mg/dL (0.55-1.02); POTASSIUM 4.6 mmol/L (3.5-5.1); SGOT/AST 14 IU/L (3-35); SGPT/ALT 23 U/L (12-78); SODIUM 141 mmol/L (136-145); TOTAL PROTEIN 6.9 gm/dL (6.4-8.2)
[2017-09-03 12:00] VITALS: BP 120/64
[2017-09-03] MEDS ORDERED: LEVOFLOXACIN500 MG PO (13:55)
[2017-09-03] MEDS ORDERED: CYCLOBENZAPRINE10 MG PO (13:55)
[2017-09-03] MEDS ORDERED: VITAMIN D31000 UNI1 PO (13:55)
[2017-09-03] MEDS ORDERED: PREDNISONE10 MG PO (13:55)
[2017-09-03 16:09] LABS: ACID FAST SMEAR Negative (.); ACID FAST SPEC PROCESSING Concentration (.)
== END 2017-09-03 15:05 | disposition home or self-care (01) | DRG 871 ==
LOC: ED 09:10 → 5E 11:13 → EDHOLD 11:13 → 5E 11:32
PROVIDERS: Emergency Medicine; Family Medicine; Internal Medicine; Internal Medicine Critical Care Medicine
PROC: 0BC98ZZ Extirpation of Matter from Lingula Bronchus, Via Natural or Artificial Opening Endoscopic (ICD-10-PCS; principal; 2017-09-02)
PROC: 0BC58ZZ Extirpation of Matter from Right Middle Lobe Bronchus, Via Natural or Artificial Opening Endoscopic (ICD-10-PCS; principal; 2017-09-02)
PROC: 0BCB8ZZ Extirpation of Matter from Left Lower Lobe Bronchus, Via Natural or Artificial Opening Endoscopic (ICD-10-PCS; principal; 2017-09-02)
PROC: 0BC48ZZ Extirpation of Matter from Right Upper Lobe Bronchus, Via Natural or Artificial Opening Endoscopic (ICD-10-PCS; principal; 2017-09-02)
PROC: 0BC38ZZ Extirpation of Matter from Right Main Bronchus, Via Natural or Artificial Opening Endoscopic (ICD-10-PCS; principal; 2017-09-02)
PROC: 0BC78ZZ Extirpation of Matter from Left Main Bronchus, Via Natural or Artificial Opening Endoscopic (ICD-10-PCS; principal; 2017-09-02)
PROC: 0BC88ZZ Extirpation of Matter from Left Upper Lobe Bronchus, Via Natural or Artificial Opening Endoscopic (ICD-10-PCS; principal; 2017-09-02)
PROC: 0BC18ZZ Extirpation of Matter from Trachea, Via Natural or Artificial Opening Endoscopic (ICD-10-PCS; principal; 2017-09-02)
PROC: 0BC68ZZ Extirpation of Matter from Right Lower Lobe Bronchus, Via Natural or Artificial Opening Endoscopic (ICD-10-PCS; principal; 2017-09-02)
DX: A41.9 Sepsis, unspecified organism (principal); J18.9 Pneumonia, unspecified organism; E87.8 Other disorders of electrolyte and fluid balance, not elsewhere classified; M25.512 Pain in left shoulder; G89.11 Acute pain due to trauma; I10 Essential (primary) hypertension; E87.5 Hyperkalemia; J30.2 Other seasonal allergic rhinitis; J20.9 Acute bronchitis, unspecified; T38.0X5A Adverse effect of glucocorticoids and synthetic analogues, initial encounter; E78.5 Hyperlipidemia, unspecified; R73.9 Hyperglycemia, unspecified; R07.89 Other chest pain; E66.01 Morbid (severe) obesity due to excess calories; D64.9 Anemia, unspecified; E83.41 Hypermagnesemia; Z91.81 History of falling; Z88.0 Allergy status to penicillin; Z88.1 Allergy status to other antibiotic agents; Z68.42 Body mass index [BMI] 45.0-49.9, adult; Z79.899 Other long term (current) drug therapy; Z82.49 Family history of ischemic heart disease and other diseases of the circulatory system; Z83.3 Family history of diabetes mellitus; Z79.51 Long term (current) use of inhaled steroids; Y92.89 Other specified places as the place of occurrence of the external cause

== ENCOUNTER → 2017-09-15 | Outpatient (CLI) | payer SELFPAY ==
[~2017-09-15] MED LIST changes: +PREDNISONE10 MG PO; +VITAMIN D31000 UNI1 PO
== END | disposition home or self-care (01) ==
LOC: RESCLI 03:48
DX: J31.2 Chronic pharyngitis (principal); R53.82 Chronic fatigue, unspecified; R05 Cough; E66.01 Morbid (severe) obesity due to excess calories; Z91.09 Other allergy status, other than to drugs and biological substances; Z87.891 Personal history of nicotine dependence

== ENCOUNTER 2017-09-25 09:51 | Emergency (ER) | payer SELFPAY ==
[~2017-09-25] VITALS: Ht 154.9 cm; Wt 108.9 kg
[2017-09-25] MEDS ORDERED: PREDNISONE20 M1 PO (11:53)
[2017-09-25] MEDS ORDERED: VIBRAMYCIN100 MG PO (11:53)
== END 2017-09-25 12:17 | disposition home or self-care (01) ==
LOC: ED 09:51
DX: J45.909 Unspecified asthma, uncomplicated (principal); E78.5 Hyperlipidemia, unspecified; E78.00 Pure hypercholesterolemia, unspecified; R73.9 Hyperglycemia, unspecified; F10.10 Alcohol abuse, uncomplicated; Z88.0 Allergy status to penicillin; Z88.1 Allergy status to other antibiotic agents; Z79.899 Other long term (current) drug therapy; Z68.42 Body mass index [BMI] 45.0-49.9, adult; Z90.89 Acquired absence of other organs

== ENCOUNTER → 2017-09-29 | Outpatient (CLI) | payer SELFPAY | END | disposition home or self-care (01) | LOC: RESCLI | DX: I10 Essential (primary) hypertension (principal); J45.901 Unspecified asthma with (acute) exacerbation; E66.01 Morbid (severe) obesity due to excess calories; R53.82 Chronic fatigue, unspecified; R60.0 Localized edema; Z87.891 Personal history of nicotine dependence; Z68.42 Body mass index [BMI] 45.0-49.9, adult ==

== ENCOUNTER → 2017-10-09 | Outpatient (CLI) | payer SELFPAY ==
--- NOTE | ~2017-10-09 | PF ---
[place], [place] PULMONARY FUNCTION TEST [id number] #: [id number] ROOM: DOCTOR: RADHA HOWE MD,REGI BIRTHDATE: [birth year] DOS: 10/09/2017 The test was ordered by Dr. Robinson Sanchez. HISTORY: The patient recorded 47-year-old female with a height of 61 inches, weight of 240 pounds, BMI 45.3. The patient reported symptoms of having shortness of breath with exertion with past tobacco use and rare wheezing. Tobacco use was noted 1 pack of cigarettes per day that was discontinued in 2015. A [id number]-[id number] of tobacco use was known. SPIROMETRY: The FVC was recorded 2.67 liters, 80% predicted value, FEV1 of 2.14 liters, 83% predicted value normal. Ratio of FEV1/FVC 82%. No significant change noted post-bronchodilator test. Flow volume suggestive of mild obstructive airway pattern. LUNG VOLUME: Thoracic gas volume was recorded as 95%, residual volume 130%, total lung capacity 104%. RV/TLC ratio 126%. The patient's lung diffusion noted normal at 86%. Resistance passive conductance noted normal. FINAL IMPRESSION: Possibility of very mild obstructive lung disease such as bronchial asthma can become completely excluded. REGI GARCIA MD CM:PFREPORT:PULMONARY FUNCTION TEST 1249 0045 REGI HOWE MD
== END | disposition home or self-care (01) ==
LOC: CP 08:06
DX: J45.901 Unspecified asthma with (acute) exacerbation (principal)

== ENCOUNTER 2017-10-28 14:35 | Emergency (ER) | payer SELFPAY ==
[~2017-10-28] VITALS: Ht 154.9 cm; Wt 108.9 kg
[2017-10-28] MEDS ORDERED: PREDNISONE20 M1 PO (17:19)
[2017-10-28] MEDS ORDERED: DOXYCYCLINE100 M3 PO (17:19)
[2017-10-28] MEDS ORDERED: PROVENTIL HFA6.7 GM INH (17:19)
[2017-10-28] MEDS ORDERED: TESSALON PERLE100 M1 PO (17:19)
== END 2017-10-28 17:20 | disposition home or self-care (01) ==
LOC: ED 14:35
DX: J45.901 Unspecified asthma with (acute) exacerbation (principal); F17.200 Nicotine dependence, unspecified, uncomplicated; Z88.0 Allergy status to penicillin; Z88.1 Allergy status to other antibiotic agents

== ENCOUNTER → 2017-11-10 | Outpatient (CLI) | payer OTHER ==
[~2017-11-10] MED LIST changes: +DOXYCYCLINE100 M3 PO; +TESSALON PERLE100 M1 PO
== END | disposition home or self-care (01) ==
LOC: RESCLI 01:34
DX: Z00.01 Encounter for general adult medical examination with abnormal findings (principal); R51 Headache; I10 Essential (primary) hypertension; K21.9 Gastro-esophageal reflux disease without esophagitis; E66.01 Morbid (severe) obesity due to excess calories; R60.0 Localized edema; Z87.891 Personal history of nicotine dependence

== ENCOUNTER → 2017-12-01 | Outpatient (CLI) | payer OTHER ==
[2017-12-01 08:13] LABS: BASO % 0.5 % (0.0-1.0); EOS # 0.2 10*3/uL (0.0-0.4); EOS % 3.9 % (1.0-4.0); HEMATOCRIT 38.3 % (37.0-47.0); HEMOGLOBIN 12.8 g/dl (12.0-16.0); LYMPH # 1.9 10*3/uL (1.3-4.4); LYMPH % 30.3 % (27.0-41.0); MEAN CORPUSCULAR HGB 31.1 pg (27.0-31.0); MEAN CORPUSCULAR HGB CONC 33.4 g/dl (33.0-37.0); MEAN PLATELET VOLUME 10.1 fl (9.6-12.3); MONO # 0.4 10*3/uL (0.1-1.0); NEUT # 3.6 10*3/uL (2.3-7.9); PLATELET COUNT AUTOMATED 397 10*3/uL (130-400); RED BLOOD COUNT 4.12 10*6/uL (4.10-5.10); RED CELL DISTRI WIDTH 12.3 % (0-14.5); WHITE BLOOD COUNT 6.2 10*3/uL (4.8-10.8)
[2017-12-01 08:44] LABS: ALBUMIN 3.2 gm/dl (3.1-4.5); ALKALINE PHOSPHATASE 76 U/L (45-117); BUN 12 mg/dl (7-24); CHLORIDE 101 mmol/L (98-107); POTASSIUM 3.4 mmol/L (3.5-5.1); SGOT/AST 18 IU/L (3-35); SGPT/ALT 27 U/L (12-78); SODIUM 138 mmol/L (136-145); TOTAL PROTEIN 7.3 gm/dL (6.4-8.2)
[2017-12-02 08:13] LABS: HIV 1+2 AB + HIV1 P24 AG Non Reactive (Non Reactive)
[2017-12-02 16:09] LABS: HEPATITIS B SURFACE AB 006395 Non Reactive (.); HEPATITIS Be ANTIGEN 006619 Negative (Negative)
== END | disposition home or self-care (01) ==
LOC: LAB 07:06
PROVIDERS: Internal Medicine
DX: Z00.01 Encounter for general adult medical examination with abnormal findings (principal); R79.89 Other specified abnormal findings of blood chemistry

== ENCOUNTER → 2017-12-08 | Outpatient (CLI) | payer OTHER | END | disposition home or self-care (01) | LOC: RESCLI 02:04 | DX: I10 Essential (primary) hypertension (principal); K21.9 Gastro-esophageal reflux disease without esophagitis; E66.01 Morbid (severe) obesity due to excess calories; R60.0 Localized edema; J45.998 Other asthma; J30.1 Allergic rhinitis due to pollen; R51 Headache; R53.82 Chronic fatigue, unspecified; R73.03 Prediabetes; Z88.0 Allergy status to penicillin; Z87.891 Personal history of nicotine dependence ==

== ENCOUNTER → 2018-02-03 | Outpatient (CLI) | payer SELFPAY | END | disposition home or self-care (01) | LOC: RESCLI 08:15 | DX: L23.7 Allergic contact dermatitis due to plants, except food (principal); Z87.891 Personal history of nicotine dependence; Z79.899 Other long term (current) drug therapy ==

== ENCOUNTER → 2018-05-22 | Outpatient (CLI) | payer OTHER | END | disposition home or self-care (01) | LOC: RAD 11:23 | DX: M54.5 Low back pain (principal); Z91.81 History of falling ==

== ENCOUNTER → 2018-09-20 | Outpatient (CLI) | payer OTHER | END | disposition home or self-care (01) | LOC: MRI 01:04 | DX: M75.102 Unspecified rotator cuff tear or rupture of left shoulder, not specified as traumatic (principal); Z91.81 History of falling ==

== ENCOUNTER → 2018-12-28 | Outpatient (CLI) | payer OTHER ==
[2018-12-28 14:40] LABS: BASO % 0.4 % (0.0-1.0); EOS # 0.3 10*3/uL (0.0-0.4); EOS % 2.4 % (1.0-4.0); HEMATOCRIT 40.4 % (37.0-47.0); HEMOGLOBIN 13.4 g/dl (12.0-16.0); LYMPH % 38.5 % (27.0-41.0); MEAN CELL VOLUME 95.3 fl (81.0-99.0); MEAN CORPUSCULAR HGB 31.6 pg (27.0-31.0); MEAN CORPUSCULAR HGB CONC 33.2 g/dl (33.0-37.0); MEAN PLATELET VOLUME 10.1 fl (9.6-12.3); MONO # 0.6 10*3/uL (0.1-1.0); NEUT # 5.4 10*3/uL (2.3-7.9); NEUT % 52.4 % (47.0-73.0); PLATELET COUNT AUTOMATED 301 10*3/uL (130-400); RED BLOOD COUNT 4.24 10*6/uL (4.10-5.10); RED CELL DISTRI WIDTH 13.2 % (0-14.5); WHITE BLOOD COUNT 10.3 10*3/uL (4.8-10.8)
[2018-12-28 15:10] LABS: ALBUMIN 3.6 gm/dl (3.1-4.5); ALKALINE PHOSPHATASE 72 U/L (45-117); BUN 18 mg/dl (7-24); CHLORIDE 98 mmol/L (98-107); CREATININE 0.98 mg/dL (0.55-1.02); POTASSIUM 3.5 mmol/L (3.5-5.1); SGOT/AST 15 IU/L (3-35); SGPT/ALT 28 U/L (12-78); SODIUM 139 mmol/L (136-145); TOTAL PROTEIN 7.2 gm/dL (6.4-8.2)
== END ==
LOC: LAB 14:16
PROVIDERS: Internal Medicine
DX: E55.9 Vitamin D deficiency, unspecified (principal)

== ENCOUNTER → 2019-01-06 | Outpatient (CLI) | payer OTHER ==
[2019-01-06 19:11] LABS: BUN 16 mg/dl (7-24); CHLORIDE 105 mmol/L (98-107); CREATININE 0.83 mg/dL (0.55-1.02); POTASSIUM 3.5 mmol/L (3.5-5.1); SODIUM 141 mmol/L (136-145)
== END | disposition home or self-care (01) ==
LOC: RESCLI 13:01
PROVIDERS: Internal Medicine
DX: M54.41 Lumbago with sciatica, right side (principal); I10 Essential (primary) hypertension; K21.9 Gastro-esophageal reflux disease without esophagitis; E66.01 Morbid (severe) obesity due to excess calories; Z79.899 Other long term (current) drug therapy; Z87.891 Personal history of nicotine dependence

== ENCOUNTER → 2019-01-10 | Outpatient (CLI) | payer OTHER | END | disposition home or self-care (01) | LOC: MRI 07:45 | DX: M54.41 Lumbago with sciatica, right side (principal); M12.88 Other specific arthropathies, not elsewhere classified, other specified site ==

== ENCOUNTER → 2019-02-07 | Outpatient (CLI) | payer OTHER ==
--- NOTE | ~2019-02-07 | EKG ---
[place], [place] ELECTROCARDIOGRAM REPORT NAME: MAYRA BRITO UNIT #: [id number] ROOM: DOCTOR: EPIPHANY DRAFT REPORT BIRTHDATE: [birth year] [facility] Test Date: 2019-02-07 Test Time: 08:44:46 Pat Name: MAYRA BRITO Department: Room: Gender: F [employer] Director: Natalia Fuller : 1970 Requested By: SELAM AMOR Order Number: [id number] Reading MD: Keshav Marques MD Measurements Intervals [place] Rate: 75 P: 61 RI: 173 QRS: 23 QRSD: 89 T: 19 QT: 397 QTc: 444 Interpretive Statements Sinus rhythm Low voltage, precordial leads Electronically Signed On 02-09-2019 8:57:34 PDT by Keshav Marques MD CM:EKGRPT:ELECTROCARDIOGRAM REPORT [id number] SELAM GRAY DRAFT REPORT SELAM AMOR MD
[2019-02-07 08:34] LABS: BASO % 0.5 % (0.0-1.0); EOS # 0.3 10*3/uL (0.0-0.4); HEMATOCRIT 37.6 % (37.0-47.0); HEMOGLOBIN 12.3 g/dl (12.0-16.0); LYMPH # 1.9 10*3/uL (1.3-4.4); LYMPH % 29.2 % (27.0-41.0); MEAN CELL VOLUME 94.2 fl (81.0-99.0); MEAN CORPUSCULAR HGB 30.8 pg (27.0-31.0); MEAN CORPUSCULAR HGB CONC 32.7 g/dl (33.0-37.0); MONO # 0.6 10*3/uL (0.1-1.0); MONO % 8.6 % (3.0-9.0); NEUT # 3.6 10*3/uL (2.3-7.9); NEUT % 56.5 % (47.0-73.0); PLATELET COUNT AUTOMATED 301 10*3/uL (130-400); RED BLOOD COUNT 3.99 10*6/uL (4.10-5.10); RED CELL DISTRI WIDTH 12.7 % (0-14.5); WHITE BLOOD COUNT 6.4 10*3/uL (4.8-10.8)
[2019-02-07 10:12] LABS: BILIRUBIN NEGATIVE (NEGATIVE); BLOOD NEGATIVE (NEGATIVE); CLARITY SL CLOUDY (CLEAR); COLOR YELLOW (YELLOW); GLUCOSE NEGATIVE (NEGATIVE); KETONE NEGATIVE (NEGATIVE); LEUKO ESTERASE NEGATIVE (NEGATIVE); NITRITE NEGATIVE (NEGATIVE); PH 5.5 (5.0-9.0); SPECIFIC GRAVITY >= 1.030 (1.005-1.030); UROBILINOGEN 0.2 E.U./dl (0.2-1.0)
[2019-02-07 11:14] LABS: BACTERIA 1+; MUCOUS 2+
== END | disposition home or self-care (01) ==
LOC: LAB 07:23
PROVIDERS: Internal Medicine
DX: Z01.818 Encounter for other preprocedural examination (principal); I10 Essential (primary) hypertension; M54.42 Lumbago with sciatica, left side; M54.41 Lumbago with sciatica, right side; R35.8 Other polyuria

== ENCOUNTER 2019-03-26 21:26 | Emergency (ER) | payer OTHER ==
[~2019-03-26] VITALS: Ht 154.9 cm; Wt 112.0 kg
[2019-03-26 22:19] LABS: BASO % 0.3 % (0.0-1.0); EOS # 0.2 10*3/uL (0.0-0.4); EOS % 3.1 % (1.0-4.0); HEMATOCRIT 35.5 % (37.0-47.0); HEMOGLOBIN 11.5 g/dl (12.0-16.0); LYMPH # 2.1 10*3/uL (1.3-4.4); LYMPH % 29.3 % (27.0-41.0); MEAN CELL VOLUME 95.9 fl (81.0-99.0); MEAN CORPUSCULAR HGB 31.1 pg (27.0-31.0); MEAN CORPUSCULAR HGB CONC 32.4 g/dl (33.0-37.0); MEAN PLATELET VOLUME 9.9 fl (9.6-12.3); MONO # 0.6 10*3/uL (0.1-1.0); MONO % 8.1 % (3.0-9.0); NEUT # 4.2 10*3/uL (2.3-7.9); NEUT % 58.9 % (47.0-73.0); PLATELET COUNT AUTOMATED 317 10*3/uL (130-400); RED CELL DISTRI WIDTH 12.7 % (0-14.5); WHITE BLOOD COUNT 7.1 10*3/uL (4.8-10.8)
[2019-03-26 22:33] LABS: ALBUMIN 3.5 gm/dl (3.1-4.5); ALKALINE PHOSPHATASE 64 U/L (45-117); BUN 13 mg/dl (7-24); CHLORIDE 109 mmol/L (98-107); CREATININE 0.65 mg/dL (0.55-1.02); POTASSIUM 3.8 mmol/L (3.5-5.1); SGOT/AST 19 IU/L (3-35); SGPT/ALT 29 U/L (12-78); SODIUM 140 mmol/L (136-145); TOTAL PROTEIN 7.1 gm/dL (6.4-8.2)
== END 2019-03-27 00:10 | disposition home or self-care (01) ==
LOC: ED 21:26
PROVIDERS: Physician Assistant
DX: G89.18 Other acute postprocedural pain (principal); M54.5 Low back pain; Z48.01 Encounter for change or removal of surgical wound dressing; Z88.0 Allergy status to penicillin; Z88.1 Allergy status to other antibiotic agents; Z87.891 Personal history of nicotine dependence; Z98.890 Other specified postprocedural states

== ENCOUNTER → 2019-05-17 | Outpatient (CLI) | payer OTHER ==
[~2019-05-17] MED LIST changes: +LOTRIMIN 1%15 GM PO
== END | disposition home or self-care (01) ==
LOC: RESCLI 00:55
DX: Z00.00 Encounter for general adult medical examination without abnormal findings (principal); E66.01 Morbid (severe) obesity due to excess calories; I10 Essential (primary) hypertension; K21.9 Gastro-esophageal reflux disease without esophagitis; J30.1 Allergic rhinitis due to pollen; M54.42 Lumbago with sciatica, left side; M54.41 Lumbago with sciatica, right side; G89.29 Other chronic pain; M50.90 Cervical disc disorder, unspecified, unspecified cervical region; E55.9 Vitamin D deficiency, unspecified; M54.12 Radiculopathy, cervical region; R73.03 Prediabetes; J42 Unspecified chronic bronchitis; Z68.42 Body mass index [BMI] 45.0-49.9, adult

== ENCOUNTER 2019-06-09 19:19 | Emergency (ER) | payer OTHER ==
[~2019-06-09] VITALS: Ht 154.9 cm
[~2019-06-09 19:19] MED LIST changes: -LOTRIMIN 1%15 GM PO
[2019-06-09] MEDS ORDERED: LOTRIMIN 1%15 GM PO (20:04)
== END 2019-06-09 21:41 | disposition home or self-care (01) ==
LOC: ED 19:19
DX: S16.1XXA Strain of muscle, fascia and tendon at neck level, initial encounter (principal); B35.9 Dermatophytosis, unspecified; R51 Headache; H57.89 Other specified disorders of eye and adnexa; H92.03 Otalgia, bilateral; F43.9 Reaction to severe stress, unspecified; Z88.0 Allergy status to penicillin; Z88.1 Allergy status to other antibiotic agents; Z79.2 Long term (current) use of antibiotics; Z79.899 Other long term (current) drug therapy; J45.909 Unspecified asthma, uncomplicated; E78.5 Hyperlipidemia, unspecified; I10 Essential (primary) hypertension; E66.01 Morbid (severe) obesity due to excess calories; Z68.42 Body mass index [BMI] 45.0-49.9, adult; Z87.891 Personal history of nicotine dependence; X58.XXXA Exposure to other specified factors, initial encounter; Y93.89 Activity, other specified; Y92.89 Other specified places as the place of occurrence of the external cause; Y99.8 Other external cause status

== ENCOUNTER 2019-08-16 17:30 | Emergency (ER) | payer OTHER ==
[~2019-08-16] VITALS: Ht 154.9 cm; Wt 117.0 kg
[~2019-08-16 17:30] MED LIST changes: +LOTRIMIN 1%15 GM PO
[2019-08-16 19:04] LABS: BASO # 0.1 10*3/uL (0.0-0.1); BASO % 0.6 % (0.0-1.0); EOS # 0.2 10*3/uL (0.0-0.4); EOS % 2.6 % (1.0-4.0); HEMATOCRIT 37.2 % (37.0-47.0); HEMOGLOBIN 12.2 g/dl (12.0-16.0); LYMPH # 2.8 10*3/uL (1.3-4.4); LYMPH % 32.4 % (27.0-41.0); MEAN CELL VOLUME 92.3 fl (81.0-99.0); MEAN CORPUSCULAR HGB 30.3 pg (27.0-31.0); MEAN CORPUSCULAR HGB CONC 32.8 g/dl (33.0-37.0); MEAN PLATELET VOLUME 10.1 fl (9.6-12.3); MONO # 0.5 10*3/uL (0.1-1.0); MONO % 5.8 % (3.0-9.0); NEUT % 58.5 % (47.0-73.0); PLATELET COUNT AUTOMATED 324 10*3/uL (130-400); RED BLOOD COUNT 4.03 10*6/uL (4.10-5.10); WHITE BLOOD COUNT 8.6 10*3/uL (4.8-10.8)
[2019-08-16 19:07] LABS: BILIRUBIN NEGATIVE (NEGATIVE); BLOOD NEGATIVE (NEGATIVE); CLARITY SL CLOUDY (CLEAR); COLOR YELLOW (YELLOW); GLUCOSE NEGATIVE (NEGATIVE); KETONE NEGATIVE (NEGATIVE); LEUKO ESTERASE NEGATIVE (NEGATIVE); NITRITE NEGATIVE (NEGATIVE); SPECIFIC GRAVITY 1.015 (1.005-1.030); UROBILINOGEN 0.2 E.U./dl (0.2-1.0)
[2019-08-16 19:11] LABS: EPITHELIAL CELLS 15-20; RBC 0-2 rbc/hpf (0-2); WBC 0-2 wbc/hpf (0-5)
[2019-08-16 19:17] LABS: ALBUMIN 3.7 gm/dl (3.1-4.5); ALKALINE PHOSPHATASE 83 U/L (45-117); BUN 17 mg/dl (7-24); CHLORIDE 102 mmol/L (98-107); CREATININE 0.85 mg/dL (0.55-1.02); LIPASE 159 U/L (73-393); POTASSIUM 3.5 mmol/L (3.5-5.1); SGOT/AST 16 IU/L (3-35); SGPT/ALT 30 U/L (12-78); SODIUM 137 mmol/L (136-145); TOTAL PROTEIN 7.6 gm/dL (6.4-8.2)
[2019-08-16] MEDS ORDERED: PEPCID20 MG PO (19:45)
== END 2019-08-16 19:52 | disposition home or self-care (01) ==
LOC: ED 17:30
PROVIDERS: Physician Assistant
DX: R10.13 Epigastric pain (principal); R14.0 Abdominal distension (gaseous); I10 Essential (primary) hypertension; J45.909 Unspecified asthma, uncomplicated; Z88.0 Allergy status to penicillin; Z88.1 Allergy status to other antibiotic agents; Z79.899 Other long term (current) drug therapy; Z87.891 Personal history of nicotine dependence

== ENCOUNTER → 2019-09-09 | Outpatient (CLI) | payer OTHER ==
[~2019-09-09] MED LIST changes: +PEPCID20 MG PO
== END | disposition home or self-care (01) ==
LOC: RESCLI 00:26
DX: M50.322 Other cervical disc degeneration at C5-C6 level (principal); I10 Essential (primary) hypertension; J30.1 Allergic rhinitis due to pollen; E66.01 Morbid (severe) obesity due to excess calories; E55.9 Vitamin D deficiency, unspecified; L74.510 Primary focal hyperhidrosis, axilla; K21.9 Gastro-esophageal reflux disease without esophagitis; R40.0 Somnolence; Z79.899 Other long term (current) drug therapy; Z90.89 Acquired absence of other organs; Z88.1 Allergy status to other antibiotic agents; Z88.8 Allergy status to other drugs, medicaments and biological substances

== ENCOUNTER → 2019-10-06 | Day surgery (SDC) | payer OTHER ==
[~2019-10-06] VITALS: Ht 156.2 cm; Wt 116.1 kg
[~2019-10-06] MED LIST changes: +HYDROCHLOROTHIA25 M1 PO; +PANTOPRAZOLE SO40 MG PO; +ZANTAC 7575 M1 PO
[2019-10-06 08:27] VITALS: BP 111/62
[2019-10-06 10:06] VITALS: BP 107/62
[2019-10-06 10:21] VITALS: BP 108/65
[2019-10-06 10:36] VITALS: BP 113/69
== END | disposition home or self-care (01) ==
LOC: SDC 09-30 14:00
DX: Z12.11 Encounter for screening for malignant neoplasm of colon (principal); K21.9 Gastro-esophageal reflux disease without esophagitis; K44.9 Diaphragmatic hernia without obstruction or gangrene; I10 Essential (primary) hypertension; E78.5 Hyperlipidemia, unspecified; K29.50 Unspecified chronic gastritis without bleeding; Z79.899 Other long term (current) drug therapy; E66.01 Morbid (severe) obesity due to excess calories; Z98.51 Tubal ligation status; Z98.890 Other specified postprocedural states; Z82.49 Family history of ischemic heart disease and other diseases of the circulatory system; Z87.891 Personal history of nicotine dependence

== ENCOUNTER → 2020-12-12 | Outpatient (CLI) | payer OTHER | END | disposition home or self-care (01) | LOC: RAD 07:41 | PROVIDERS: ATTEND Nurse Practitioner Family | DX: M51.36 Other intervertebral disc degeneration, lumbar region (principal); M43.16 Spondylolisthesis, lumbar region; M85.88 Other specified disorders of bone density and structure, other site ==

== ENCOUNTER → 2021-01-30 | Outpatient (CLI) | payer OTHER | END | disposition home or self-care (01) | LOC: RAD 10:49 | PROVIDERS: ATTEND Internal Medicine | DX: R05 Cough (principal) ==

== ENCOUNTER → 2021-02-05 | Outpatient (CLI) | payer OTHER | END | disposition home or self-care (01) | LOC: MAMMO 01-01 17:00 | PROVIDERS: ATTEND Obstetrics & Gynecology | DX: Z12.31 Encounter for screening mammogram for malignant neoplasm of breast (principal) ==

== ENCOUNTER → 2021-02-16 | Outpatient (CLI) | payer OTHER ==
[2021-02-16 08:22] LABS: BASO # 0.1 10*3/uL (0.0-0.1); BASO % 0.6 % (0.0-1.0); EOS # 0.1 10*3/uL (0.0-0.4); EOS % 0.6 % (1.0-4.0); HEMATOCRIT 39.9 % (37.0-47.0); LYMPH % 18.4 % (27.0-41.0); MEAN CELL VOLUME 94.3 fl (81.0-99.0); MEAN CORPUSCULAR HGB CONC 32.8 g/dl (33.0-37.0); MEAN PLATELET VOLUME 10.6 fl (9.6-12.3); MONO # 0.6 10*3/uL (0.1-1.0); NEUT # 8.2 10*3/uL (2.3-7.9); NEUT % 74.8 % (47.0-73.0); PLATELET COUNT AUTOMATED 361 10*3/uL (130-400); RED BLOOD COUNT 4.23 10*6/uL (4.10-5.10); RED CELL DISTRI WIDTH 12.7 % (0-14.5); WHITE BLOOD COUNT 10.9 10*3/uL (4.8-10.8)
[2021-02-16 08:39] LABS: ALBUMIN 3.7 gm/dl (3.1-4.5); ALKALINE PHOSPHATASE 116 U/L (45-117); BUN 22 mg/dl (7-24); CHLORIDE 105 mmol/L (98-107); CREATININE 0.72 mg/dL (0.55-1.02); POTASSIUM 4.3 mmol/L (3.5-5.1); SGOT/AST 34 IU/L (3-35); SGPT/ALT 76 U/L (12-78); SODIUM 137 mmol/L (136-145); TOTAL PROTEIN 7.7 gm/dL (6.4-8.2)
[2021-02-16 08:46] LABS: THYROID STIM HORMONE (HS) 0.703 uIU/ml (0.358-4.75)
== END | disposition home or self-care (01) ==
LOC: LAB 00:12
PROVIDERS: ATTEND Internal Medicine
DX: I10 Essential (primary) hypertension (principal); E03.9 Hypothyroidism, unspecified; E78.2 Mixed hyperlipidemia; E66.9 Obesity, unspecified

== ENCOUNTER 2021-02-23 01:43 | Emergency (ER) | payer OTHER ==
[2021-02-23 02:37] LABS: BASO % 0.2 % (0.0-1.0); EOS # 0.2 10*3/uL (0.0-0.4); EOS % 1.7 % (1.0-4.0); HEMATOCRIT 38.2 % (37.0-47.0); LYMPH # 2.2 10*3/uL (1.3-4.4); LYMPH % 18.1 % (27.0-41.0); MEAN CELL VOLUME 93.2 fl (81.0-99.0); MEAN CORPUSCULAR HGB 30.7 pg (27.0-31.0); MEAN PLATELET VOLUME 9.9 fl (9.6-12.3); MONO # 0.9 10*3/uL (0.1-1.0); MONO % 7.3 % (3.0-9.0); NEUT # 8.9 10*3/uL (2.3-7.9); NEUT % 72.4 % (47.0-73.0); PLATELET COUNT AUTOMATED 314 10*3/uL (130-400); RED CELL DISTRI WIDTH 12.5 % (0-14.5); WHITE BLOOD COUNT 12.3 10*3/uL (4.8-10.8)
[2021-02-23 03:01] LABS: ACT PARTIAL THROMBO TIME 24.5 SECONDS (20.0-32.1)
[2021-02-23 03:03] LABS: ALBUMIN 3.6 gm/dl (3.1-4.5); ALKALINE PHOSPHATASE 93 U/L (45-117); BUN 15 mg/dl (7-24); CHLORIDE 105 mmol/L (98-107); CREATININE 0.81 mg/dL (0.55-1.02); POTASSIUM 3.5 mmol/L (3.5-5.1); SGOT/AST 24 IU/L (3-35); SGPT/ALT 60 U/L (12-78); SODIUM 139 mmol/L (136-145); TOTAL PROTEIN 7.3 gm/dL (6.4-8.2)
== END 2021-02-23 05:02 | disposition home or self-care (01) ==
LOC: ED 01:43
PROVIDERS: Emergency Medicine
DX: G44.89 Other headache syndrome (principal); R20.2 Paresthesia of skin; F41.9 Anxiety disorder, unspecified; Z88.0 Allergy status to penicillin; Z88.1 Allergy status to other antibiotic agents; Z79.899 Other long term (current) drug therapy; Z98.890 Other specified postprocedural states; Z98.51 Tubal ligation status; Z87.891 Personal history of nicotine dependence

== ENCOUNTER 2021-07-26 08:23 | Emergency (ER) | payer OTHER ==
[~2021-07-26] VITALS: Ht 154.9 cm; Wt 111.1 kg
[2021-07-26] MEDS ORDERED: ATORVASTATIN CA40 M1 PO (09:15)
[2021-07-26] MEDS ORDERED: DICYCLOMINE HCL10 MG PO (09:15)
[2021-07-26] MEDS ORDERED: FLONASE ALLERG9.9 ML NAS (09:16)
[2021-07-26] MEDS ORDERED: PAROXETINE10 MG PO (09:17)
[2021-07-26] MEDS ORDERED: CETIRIZINE10 MG PO (09:17)
[2021-07-26 09:35] LABS: BASO % 0.4 % (0.0-1.0); EOS # 0.3 10*3/uL (0.0-0.4); EOS % 4.2 % (1.0-4.0); HEMATOCRIT 39.9 % (37.0-47.0); LYMPH % 24.4 % (27.0-41.0); MEAN CELL VOLUME 94.5 fl (81.0-99.0); MEAN CORPUSCULAR HGB 30.3 pg (27.0-31.0); MEAN CORPUSCULAR HGB CONC 32.1 g/dl (33.0-37.0); MEAN PLATELET VOLUME 9.5 fl (9.6-12.3); MONO # 0.8 10*3/uL (0.1-1.0); MONO % 9.6 % (3.0-9.0); NEUT # 4.9 10*3/uL (2.3-7.9); NEUT % 61.2 % (47.0-73.0); PLATELET COUNT AUTOMATED 297 10*3/uL (130-400); RED BLOOD COUNT 4.22 10*6/uL (4.10-5.10); RED CELL DISTRI WIDTH 12.5 % (0-14.5); WHITE BLOOD COUNT 8.1 10*3/uL (4.8-10.8)
[2021-07-26 09:54] LABS: ALBUMIN 3.3 gm/dl (3.1-4.5); ALKALINE PHOSPHATASE 131 U/L (45-117); BUN 15 mg/dl (7-24); CHLORIDE 109 mmol/L (98-107); CREATININE 0.78 mg/dL (0.55-1.02); POTASSIUM 3.8 mmol/L (3.5-5.1); SGOT/AST 23 IU/L (3-35); SGPT/ALT 51 U/L (12-78); SODIUM 138 mmol/L (136-145); TOTAL PROTEIN 7.8 gm/dL (6.4-8.2)
[2021-07-26] MEDS ORDERED: ZOFRAN4 MG PO (10:46)
== END 2021-07-26 11:01 | disposition home or self-care (01) ==
LOC: ED 08:23
PROVIDERS: Internal Medicine
DX: R11.2 Nausea with vomiting, unspecified (principal); Z20.822 Contact with and (suspected) exposure to COVID-19; R19.7 Diarrhea, unspecified; Z87.891 Personal history of nicotine dependence; Z88.1 Allergy status to other antibiotic agents; Z88.0 Allergy status to penicillin; Z79.899 Other long term (current) drug therapy

== ENCOUNTER 2021-10-31 18:47 | Emergency (ER) | payer OTHER ==
[~2021-10-31 18:47] MED LIST changes: +ATORVASTATIN CA40 M1 PO; +CETIRIZINE10 MG PO; +DICYCLOMINE HCL10 MG PO; +PAROXETINE10 MG PO; +ZOFRAN4 MG PO
[2021-10-31] MEDS ORDERED: MEDROL DOSEPAK4 MG PO (20:20)
[2021-10-31] MEDS ORDERED: Motrin,Rufen800 MG PO (20:20)
[2021-10-31] MEDS ORDERED: CYCLOBENZAPRINE5 M3 PO (20:20)
== END 2021-10-31 21:16 | disposition home or self-care (01) ==
LOC: ED 18:47
DX: M54.31 Sciatica, right side (principal)

== ENCOUNTER 2021-11-06 20:16 | Emergency (ER) | payer OTHER ==
[~2021-11-06 20:16] MED LIST changes: +CYCLOBENZAPRINE5 M3 PO; +MEDROL DOSEPAK4 MG PO; +Motrin,Rufen800 MG PO
[2021-11-06 20:38] LABS: BASO % 0.2 % (0.0-1.0); EOS # 0.3 10*3/uL (0.0-0.4); EOS % 3.1 % (1.0-4.0); HEMATOCRIT 41.1 % (37.0-47.0); LYMPH # 3.3 10*3/uL (1.3-4.4); LYMPH % 30.5 % (27.0-41.0); MEAN CELL VOLUME 91.1 fl (81.0-99.0); MEAN CORPUSCULAR HGB 30.4 pg (27.0-31.0); MEAN CORPUSCULAR HGB CONC 33.3 g/dl (33.0-37.0); MEAN PLATELET VOLUME 9.6 fl (9.6-12.3); MONO # 0.6 10*3/uL (0.1-1.0); MONO % 5.2 % (3.0-9.0); NEUT # 6.6 10*3/uL (2.3-7.9); NEUT % 60.6 % (47.0-73.0); PLATELET COUNT AUTOMATED 318 10*3/uL (130-400); RED BLOOD COUNT 4.51 10*6/uL (4.10-5.10); RED CELL DISTRI WIDTH 12.2 % (0-14.5); WHITE BLOOD COUNT 10.9 10*3/uL (4.8-10.8)
[2021-11-06 20:54] LABS: ALKALINE PHOSPHATASE 96 U/L (45-117); BUN 13 mg/dl (7-24); CHLORIDE 108 mmol/L (98-107); CREATININE 0.89 mg/dL (0.55-1.02); POTASSIUM 3.8 mmol/L (3.5-5.1); SGOT/AST 14 IU/L (3-35); SGPT/ALT 26 U/L (12-78); SODIUM 139 mmol/L (136-145); TOTAL PROTEIN 7.8 gm/dL (6.4-8.2)
[2021-11-06 20:56] LABS: ACT PARTIAL THROMBO TIME 26.2 SECONDS (20.0-32.1); INTERNATIONAL NORM RATIO 0.9 (2.0-3.5)
[2021-11-07] MEDS ORDERED: ULTRAM50 MG PO (00:38)
== END 2021-11-07 00:49 | disposition home or self-care (01) ==
LOC: ED 20:16
PROVIDERS: Emergency Medicine
DX: S29.012A Strain of muscle and tendon of back wall of thorax, initial encounter (principal); R07.89 Other chest pain; E78.5 Hyperlipidemia, unspecified; I10 Essential (primary) hypertension; Z79.899 Other long term (current) drug therapy; Z88.0 Allergy status to penicillin; Z88.1 Allergy status to other antibiotic agents; Z98.890 Other specified postprocedural states; Z98.51 Tubal ligation status; X50.1XXA Overexertion from prolonged static or awkward postures, initial encounter; Y93.89 Activity, other specified; Y92.89 Other specified places as the place of occurrence of the external cause; Y99.9 Unspecified external cause status

== ENCOUNTER 2022-03-24 16:54 | Emergency (ER) | payer SELFPAY ==
[~2022-03-24 16:54] MED LIST changes: +ULTRAM50 MG PO
== END 2022-03-24 18:15 | disposition left against medical advice (07) ==
LOC: ED 16:54
DX: T14.8XXA Other injury of unspecified body region, initial encounter (principal); Z53.21 Procedure and treatment not carried out due to patient leaving prior to being seen by health care provider; W55.01XA Bitten by cat, initial encounter; Y93.89 Activity, other specified; Y92.89 Other specified places as the place of occurrence of the external cause; Y99.9 Unspecified external cause status

== ENCOUNTER 2022-06-17 12:45 | Emergency (ER) | payer SELFPAY ==
[~2022-06-17] VITALS: Ht 154.9 cm; Wt 113.4 kg
[2022-06-17 14:28] LABS: BILIRUBIN Negative (Negative); BLOOD Negative (Negative); CLARITY Clear (Clear); COLOR Yellow (Yellow); GLUCOSE Negative (Negative); KETONE Negative (Negative); LEUKO ESTERASE Negative (Negative); NITRITE Negative (Negative); UROBILINOGEN 0.2 E.U./dl (0.0-1.0)
[2022-06-17 15:06] LABS: BACTERIA 1+; WBC 0-2 wbc/hpf (0-5)
[2022-06-17 15:09] LABS: BASO % 0.4 % (0.0-1.0); EOS # 0.3 10*3/uL (0.0-0.4); EOS % 2.8 % (1.0-4.0); HEMATOCRIT 39.4 % (37.0-47.0); LYMPH # 2.3 10*3/uL (1.3-4.4); LYMPH % 24.3 % (27.0-41.0); MEAN CELL VOLUME 93.6 fl (81.0-99.0); MEAN CORPUSCULAR HGB 31.1 pg (27.0-31.0); MEAN CORPUSCULAR HGB CONC 33.2 g/dl (33.0-37.0); MEAN PLATELET VOLUME 9.7 fl (9.6-12.3); MONO # 0.5 10*3/uL (0.1-1.0); MONO % 5.2 % (3.0-9.0); NEUT # 6.4 10*3/uL (2.3-7.9); NEUT % 67.2 % (47.0-73.0); PLATELET COUNT AUTOMATED 348 10*3/uL (130-400); RED BLOOD COUNT 4.21 10*6/uL (4.10-5.10); RED CELL DISTRI WIDTH 12.5 % (0-14.5); WHITE BLOOD COUNT 9.6 10*3/uL (4.8-10.8)
[2022-06-17 15:26] LABS: ALKALINE PHOSPHATASE 114 U/L (45-117); BUN 12 mg/dl (7-24); CHLORIDE 105 mmol/L (98-107); CREATININE 0.77 mg/dL (0.55-1.02); POTASSIUM 4.2 mmol/L (3.5-5.1); SODIUM 137 mmol/L (136-145)
[2022-06-17 15:30] LABS: SGPT/ALT 36 U/L (12-78)
[2022-06-17 15:43] LABS: LIPASE 2477 U/L (73-393)
== END 2022-06-17 18:20 | disposition left against medical advice (07) ==
LOC: ED 12:45
PROVIDERS: Physician Assistant
DX: K85.90 Acute pancreatitis without necrosis or infection, unspecified (principal); R19.7 Diarrhea, unspecified; Z79.899 Other long term (current) drug therapy; Z88.0 Allergy status to penicillin; Z88.1 Allergy status to other antibiotic agents

== ENCOUNTER → 2022-06-19 | Outpatient (CLI) | payer SELFPAY | END | disposition home or self-care (01) | LOC: US 00:05 | PROVIDERS: ATTEND Physician Assistant | DX: K85.90 Acute pancreatitis without necrosis or infection, unspecified (principal) ==

== ENCOUNTER 2022-10-17 11:38 | Emergency (ER) | payer SELFPAY ==
[~2022-10-17] VITALS: Ht 154.9 cm; Wt 117.9 kg
[2022-10-17 12:38] LABS: BASO % 0.6 % (0.0-1.0); EOS # 0.2 10*3/uL (0.0-0.4); EOS % 3.2 % (1.0-4.0); HEMATOCRIT 39.7 % (37.0-47.0); LYMPH # 2.4 10*3/uL (1.3-4.4); LYMPH % 35.5 % (27.0-41.0); MEAN CORPUSCULAR HGB CONC 32.2 g/dl (33.0-37.0); MONO # 0.5 10*3/uL (0.1-1.0); MONO % 6.7 % (3.0-9.0); NEUT # 3.7 10*3/uL (2.3-7.9); NEUT % 53.9 % (47.0-73.0); PLATELET COUNT AUTOMATED 319 10*3/uL (130-400); RED BLOOD COUNT 4.27 10*6/uL (4.10-5.10); RED CELL DISTRI WIDTH 12.8 % (0-14.5); WHITE BLOOD COUNT 6.9 10*3/uL (4.8-10.8)
[2022-10-17 12:57] LABS: ALKALINE PHOSPHATASE 104 U/L (46-116); BUN 9 mg/dl (9-23); CHLORIDE 105 mmol/L (98-107); LIPASE 45 U/L (12-53); POTASSIUM 4.1 mmol/L (3.4-5.1); SGPT/ALT 31 U/L (10-49); TOTAL PROTEIN 7.4 gm/dL (6.0-8.0)
[2022-10-17 15:53] LABS: BILIRUBIN Negative (Negative); BLOOD Negative (Negative); CLARITY Clear (Clear); COLOR Yellow (Yellow); GLUCOSE Negative (Negative); KETONE Negative (Negative); LEUKO ESTERASE Negative (Negative); NITRITE Negative (Negative); UROBILINOGEN 0.2 E.U./dl (0.0-1.0)
[2022-10-17 16:26] LABS: BACTERIA 1+
[2022-10-17] MEDS ORDERED: ONDANSETRON4 MG SL (17:28)
== END 2022-10-17 17:45 | disposition home or self-care (01) ==
LOC: ED 11:38
PROVIDERS: Physician Assistant
DX: R11.2 Nausea with vomiting, unspecified (principal); R10.9 Unspecified abdominal pain; E78.5 Hyperlipidemia, unspecified; I10 Essential (primary) hypertension; E66.01 Morbid (severe) obesity due to excess calories; Z88.0 Allergy status to penicillin; Z88.1 Allergy status to other antibiotic agents; Z79.899 Other long term (current) drug therapy; Z98.51 Tubal ligation status; Z87.891 Personal history of nicotine dependence

== ENCOUNTER 2024-01-09 19:57 | Emergency (ER) | payer OTHER ==
[~2024-01-09] VITALS: Ht 154.9 cm; Wt 113.4 kg
[~2024-01-09 19:57] MED LIST changes: +ONDANSETRON4 MG SL
[2024-01-09] MEDS ORDERED: SODIUM CHLORIDE 0.9% 1,000 ML IV ONE (20:20)
[2024-01-09 20:49] LABS: BASO # 0.1 10*3/uL (0.0-0.1); BASO % 0.5 % (0.0-1.0); EOS # 0.2 10*3/uL (0.0-0.4); EOS % 1.8 % (1.0-4.0); HEMATOCRIT 41.5 % (37.0-47.0); LYMPH # 3.1 10*3/uL (1.3-4.4); MEAN CELL VOLUME 94.5 fl (81.0-99.0); MEAN CORPUSCULAR HGB 30.3 pg (27.0-31.0); MEAN PLATELET VOLUME 10.5 fl (9.6-12.3); MONO # 0.7 10*3/uL (0.1-1.0); MONO % 6.2 % (3.0-9.0); NEUT # 6.7 10*3/uL (2.3-7.9); NEUT % 62.4 % (47.0-73.0); PLATELET COUNT AUTOMATED 291 10*3/uL (130-400); RED BLOOD COUNT 4.39 10*6/uL (4.10-5.10); RED CELL DISTRI WIDTH 12.9 % (0-14.5); WHITE BLOOD COUNT 10.7 10*3/uL (4.8-10.8)
[2024-01-09] MEDS ORDERED: IOHEXOL 300 MG/ML 100 ML VIAL IV ONE (20:50)
[2024-01-09 20:59] LABS: BILIRUBIN Negative (Negative); BLOOD Negative (Negative); CLARITY Clear (Clear); COLOR Yellow (Yellow); GLUCOSE Negative (Negative); KETONE Negative (Negative); LEUKO ESTERASE Negative (Negative); NITRITE Negative (Negative); SPECIFIC GRAVITY <= 1.005 (1.001-1.030); UROBILINOGEN 0.2 E.U./dl (0.0-1.0)
[2024-01-09 21:04] LABS: ACT PARTIAL THROMBO TIME 26.4 SECONDS (20.0-32.1)
[2024-01-09 21:06] LABS: WBC 0-2 wbc/hpf (0-5)
[2024-01-09 21:10] LABS: ALKALINE PHOSPHATASE 92 U/L (46-116); BUN 10 mg/dl (9-23); CHLORIDE 103 mmol/L (98-107); LIPASE 39 U/L (12-53); POTASSIUM 3.8 mmol/L (3.4-5.1); SGPT/ALT 19 U/L (5-49); TOTAL PROTEIN 7.5 gm/dL (6.0-8.0)
== END 2024-01-10 00:16 | disposition home or self-care (01) ==
LOC: ED 19:57
PROVIDERS: Internal Medicine
DX: R10.9 Unspecified abdominal pain (principal); R11.2 Nausea with vomiting, unspecified; T50.5X5A Adverse effect of appetite depressants, initial encounter; J45.909 Unspecified asthma, uncomplicated; I10 Essential (primary) hypertension; F10.10 Alcohol abuse, uncomplicated; Z88.0 Allergy status to penicillin; Z88.1 Allergy status to other antibiotic agents; Z88.8 Allergy status to other drugs, medicaments and biological substances; Z98.890 Other specified postprocedural states; Z98.51 Tubal ligation status; Y92.89 Other specified places as the place of occurrence of the external cause

== ENCOUNTER → 2024-09-15 | Outpatient (CLI) | payer OTHER | END | disposition home or self-care (01) | LOC: RAD 10:23 | PROVIDERS: ATTEND Nurse Practitioner | DX: M17.12 Unilateral primary osteoarthritis, left knee (principal); M77.32 Calcaneal spur, left foot; M25.562 Pain in left knee ==

== ENCOUNTER 2025-02-24 13:39 | Emergency (ER) | payer BC ==
[~2025-02-24] VITALS: Ht 154.9 cm; Wt 108.9 kg
[2025-02-24 14:42] LABS: BASO # 0.0 10*3/uL (0.0-0.1); BASO % 0.3 % (0.0-1.0); EOS # 0.3 10*3/uL (0.0-0.4); EOS % 5.2 % (1.0-4.0); MEAN CELL VOLUME 93.4 fl (81.0-99.0); MEAN CORPUSCULAR HGB 30.6 pg (27.0-31.0); MEAN PLATELET VOLUME 9.7 fl (9.6-12.3); MONO # 0.5 10*3/uL (0.1-1.0); MONO % 7.9 % (3.0-9.0); NEUT # 3.9 10*3/uL (2.3-7.9); NEUT % 58.8 % (47.0-73.0); NUCLEATED RED BLOOD CELL 0.0 % (0.0-0.0); NUCLEATED RED BLOOD CELL 0.0 10*3/uL (0.0-0.0); PLATELET COUNT AUTOMATED 269 10*3/uL (130-400); RED CELL DISTRI WIDTH 12.4 % (0-14.5)
[2025-02-24 15:02] LABS: BUN 13 mg/dl (9-23)
[2025-02-24] MEDS ORDERED: MG-AL HYDROXIDE/SIMETICONE 30 ML UDC PO STA (17:00)
[2025-02-24] MEDS ORDERED: Dicyclomine Hydrochloride 20 MG/10 ML OSYR PO STA (17:00)
== END 2025-02-24 17:52 | disposition home or self-care (01) ==
LOC: ED 13:39
PROVIDERS: Nurse Practitioner Family
DX: K21.9 Gastro-esophageal reflux disease without esophagitis (principal); J02.9 Acute pharyngitis, unspecified; Z88.0 Allergy status to penicillin; Z88.1 Allergy status to other antibiotic agents; Z79.899 Other long term (current) drug therapy; Z98.890 Other specified postprocedural states; Z87.891 Personal history of nicotine dependence

== ENCOUNTER 2025-06-21 20:42 | Emergency (ER) | payer BC ==
[~2025-06-21] VITALS: Ht 154.9 cm; Wt 107.5 kg
[2025-06-21] MEDS ORDERED: diphenhydrAMINE hydrochloride 50 MG/ML VIAL IV ONE (21:00)
[2025-06-21] MEDS ORDERED: FAMOTIDINE 20 MG in SYRINGE INFUSION 8 ML IV ONE (21:00)
[2025-06-21 21:25] LABS: BASO # 0.0 10*3/uL (0.0-0.1); BASO % 0.1 % (0.0-1.0); EOS # 0.0 10*3/uL (0.0-0.4); EOS % 0.0 % (1.0-4.0); MEAN CELL VOLUME 92.1 fl (81.0-99.0); MEAN CORPUSCULAR HGB 29.9 pg (27.0-31.0); MEAN PLATELET VOLUME 9.8 fl (9.6-12.3); MONO # 0.7 10*3/uL (0.1-1.0); MONO % 6.1 % (3.0-9.0); NEUT # 8.9 10*3/uL (2.3-7.9); NEUT % 78.7 % (47.0-73.0); NUCLEATED RED BLOOD CELL 0.0 % (0.0-0.0); NUCLEATED RED BLOOD CELL 0.0 10*3/uL (0.0-0.0); PLATELET COUNT AUTOMATED 341 10*3/uL (130-400); RED CELL DISTRI WIDTH 12.2 % (0-14.5)
[2025-06-21 21:39] LABS: BUN 15 mg/dl (9-23)
[2025-06-21] MEDS ORDERED: MEDROL DOSEPAK4 MG PO (21:58)
== END 2025-06-21 22:03 | disposition home or self-care (01) ==
LOC: ED 20:42
PROVIDERS: Nurse Practitioner Family
DX: T78.40XA Allergy, unspecified, initial encounter (principal); I10 Essential (primary) hypertension; J45.909 Unspecified asthma, uncomplicated; K21.9 Gastro-esophageal reflux disease without esophagitis; Z98.890 Other specified postprocedural states; Z88.0 Allergy status to penicillin; Z88.1 Allergy status to other antibiotic agents; Z88.5 Allergy status to narcotic agent; X58.XXXA Exposure to other specified factors, initial encounter